=== PATIENT | male | born 1955 | race Caucasian/White ===

== ENCOUNTER → 2017-09-29 | Outpatient (CLI) | payer MEDICARE, OTHER ==
[~2017-09-29] MED LIST: ASPIRIN EC81 M1; CASODEX 50 MG T50 MG; GLUCOPHAGE850 MG; HYDROCODON-ACE1 EAC7; LASIX 20 MG TAB20 MG; LISINOPRIL-HCT1 EAC1 PO; LISINOPRIL10 MG PO; MEGACE; MEGESTROL ACETA20 MG PO; MOBIC7.5 M1 PO; PREDNISONE 10 M10 M1 PO; TOPROL XL25 MG PO; VITAMIN C + RO500 MG PO; VITAMIN D2400 UNIT PO; XTANDI40 MG PO; ZOLADEX SUBQ; ZOLADEX10.8 MG SQ
--- NOTE | 2017-09-29 14:40 | 2DMMODE ---
[place] [address] 2 D/M-MODE ECHOCARDIOGRAM Name: BEATRICE SCHREIBER Room: [facility]#: [id number] Admission: 09/29/17 Attend Phys: Mo Evans, Discharge: Date of : 53 Date of Service: 09/29/17 1439 Report #: [id number] THIS REPORT FOR: //name// APPROVED REPORT Study performed: 09/29/2017 13:26:32 EXAM: Comprehensive 2D, Doppler, and color-flow Echocardiogram Patient Location: Out-Patient Status: routine BSA: 2.41 HR: 88 bpm BP: 120/80 mmHg Other Information Study Quality: Good Indications Palpitations 2D Dimensions LVEF(%): 61.75 (>50%) IVSd: 11.94 (7-11mm) LVOT Diam: 20.67 (18-24mm) LVDd: 45.28 mm PWd: 11.48 (7-11mm) Ascending Ao: 28.40 (22-36mm) LVDs: 30.31 (25-40mm) Aortic Root: 34.47 mm Stone's LVEF: 61.75 % Volumes Left Atrial Volume (Systole) LA ESV Index: 15.20 mL/m2 Aortic Valve AoV Peak Jason.: 1.69 m/s AO Peak Gr.: 11.38 mmHg LVOT Max P.50 mmHg AO Mean Gr.: 6.87 mmHg LVOT Mean P.50 mmHg LVOT Max V: 0.94 m/s AO V2 VTI: 31.88 cm LVOT Mean V: 0.55 m/s CHELSEY (VTI): 1.84 cm2 LVOT V1 VTI: 17.48 cm Mitral Valve E/A Ratio: 0.68 MV Decel. Time: 279.71 [place] [address] 2 D/M-MODE ECHOCARDIOGRAM Name: BEATRICE SCHREIBER Room: [facility]#: [id number] Admission: 09/29/17 Attend Phys: Mo Evans, Discharge: Date of : 53 Date of Service: 09/29/17 1439 Report #: [id number] MV E Max Jason.: 0.63 m/s MV PHT: 81.12 ms MVA (PHT): 2.71 cm2 TDI E/Lateral E': 7.88 E/Medial E': 10.50 Medial E' Jason.: 0.06 m/s Lateral E' Jason.: 0.08 m/s Pulmonary Valve PV Peak Jason.: 1.19 m/s PV Peak Gr.: 5.66 mmHg Left Ventricle The left ventricle is normal size. There is normal LV segmental wall motion. Mild concentric left ventricular hypertrophy. Left ventricular systolic function is normal. The left ventricular ejection fraction is within the normal range. LVEF is 50-55%. Grade I - abnormal relaxation pattern. Right Ventricle The right ventricle is normal size. The right ventricular systolic function is normal. Atria The left atrium size is normal. The right atrium size is normal. Aortic Valve The aortic valve is normal in structure. No aortic regurgitation is present. There is no aortic valvular stenosis. Mitral Valve The mitral valve is normal in structure. Mild mitral regurgitation. No evidence of mitral valve stenosis. Tricuspid Valve The tricuspid valve is normal in structure. There is no tricuspid valve regurgitation noted. Pulmonic Valve Pulmonic valve is not well visualized. There is no pulmonic valvular regurgitation. Great Vessels The aortic root is normal in size. IVC [place] [address] 2 D/M-MODE ECHOCARDIOGRAM Name: BEATRICE SCHREIBER Waldemar Room: [facility]#: [id number] Admission: 09/29/17 Attend Phys: Mo Evans, Discharge: Date of : 53 Date of Service: 09/29/17 1439 Report #: [id number] Pericardium There is no pericardial effusion. <Conclusion> LVEF is 50-55%. Mild concentric left ventricular hypertrophy. Mild mitral regurgitation. <ELECTRONICALLY SIGNED> By: Jh Arrieta MD, [facility] 09/29/17 1439 1439 1439 Jh Arrieta MD, [facility] /INF
== END ==
LOC: M.CRD 13:00
DX: I34.0 Nonrheumatic mitral (valve) insufficiency (principal); I51.7 Cardiomegaly; I47.1 Supraventricular tachycardia

== ENCOUNTER → 2018-07-14 | Outpatient (CLI) | payer MEDICARE, OTHER ==
[2018-07-14 09:06] LABS: CALCIUM 8.9 mg/dL (8.5-10.1); CREATININE 0.9 mg/dL (0.6-1.3); POTASSIUM 4.3 mmol/L (3.5-5.1)
--- NOTE | 2018-07-17 12:46 | PF ---
[address] [address] PULMONARY FUNCTION REPORT Name: BEATRICE SCHREIBER Room: [facility]#: [id number] Admission: 07/14/18 Attend Phys: Mo Evans MD Discharge: Date of : 53 Report #: [id number] THIS REPORT FOR: //name// CC: CALI Evans DATE OF SERVICE: 07/14/2018 REQUESTING PHYSICIAN: Dr. Evans. Spirometry was done. FEV1 low normal at 2.85 at 79% of predicted. FVC 3.91. FEV1/FVC ratio 73%. Vital capacity did improve by 14% after inhaled bronchodilator. Mid flows were 72% of predicted. Lung volumes by plethysmography revealed a normal TLC. Residual volume was increased. Diffusion capacity was just mildly diminished. IMPRESSION: These studies are consistent with a mild obstructive process. Overall, no significant change seen after inhaled bronchodilator. Mild decrease in diffusion capacity and there is some air trapping. <ELECTRONICALLY SIGNED> By: Shannen Hernandez MD 07/17/18 1246 0921 [id number] Hernandez MD /nt
== END ==
LOC: M.LAB 07-03 15:43
PROVIDERS: Internal Medicine Cardiovascular Disease
DX: I42.0 Dilated cardiomyopathy (principal); R06.00 Dyspnea, unspecified

== ENCOUNTER → 2018-07-24 | Outpatient (CLI) | payer MEDICARE, OTHER | LOC: M.ULTRA 09:04 | DX: K76.0 Fatty (change of) liver, not elsewhere classified (principal); R16.0 Hepatomegaly, not elsewhere classified ==

== ENCOUNTER → 2018-10-27 | Outpatient (CLI) | payer MEDICARE, OTHER ==
[2018-10-27 14:39] LABS: ALBUMIN 3.6 g/dL (3.4-5.0); CALCIUM 9.5 mg/dL (8.5-10.1); CREATININE 1.1 mg/dL (0.6-1.3); POTASSIUM 4.5 mmol/L (3.5-5.1); TOTAL BILIRUBIN 0.4 mg/dL (<0.1-1.0); TOTAL PROTEIN 7.7 g/dL (6.4-8.2)
== END ==
LOC: M.LAB 13:41
PROVIDERS: Internal Medicine Hematology & Oncology
DX: C61 Malignant neoplasm of prostate (principal)

== ENCOUNTER → 2020-05-22 | Outpatient (CLI) | payer MEDICARE, OTHER ==
--- NOTE | 2020-05-22 11:42 | 2DMMODE ---
[place] [address] 2 D/M-MODE ECHOCARDIOGRAM Name: ABDOULBEATRICE SAHA Waldemar Room: [facility]#: [id number] Admission: 05/22/20 Attend Phys: Zach Elizondo Discharge: Date of : 53 Date of Service: 05/22/20 1142 Report #: [id number] THIS REPORT FOR: cc: Tabby Blas MD, Lin W. MD Holkins, John M. MD [facility] ~ APPROVED REPORT Study performed: 05/22/2020 10:16:29 EXAM: Comprehensive 2D, Doppler, and color-flow Echocardiogram Patient Location: Out-Patient BSA: 2.45 HR: 80 bpm BP: 135/78 mmHg Other Information Study Quality: Good Indications Cardiomyopathy Hypertension/HDD 2D Dimensions IVSd: 13.60 (7-11mm) LVOT Diam: 22.19 (18-24mm) LVDd: 43.34 mm PWd: 12.89 (7-11mm) Ascending Ao: 32.64 (22-36mm) LVDs: 26.67 (25-40mm) Aortic Root: 34.15 mm Volumes Left Atrial Volume (Systole) LA ESV Index: 15.50 mL/m2 Aortic Valve AoV Peak Jason.: 1.67 m/s AO Peak Gr.: 11.13 mmHg LVOT Max P.07 mmHg AO Mean Gr.: 6.43 mmHg LVOT Mean P.41 mmHg LVOT Max V: 0.88 m/s AO V2 VTI: 31.58 cm LVOT Mean V: 0.54 m/s CHELSEY (VTI): 2.24 cm2 LVOT V1 VTI: 18.26 cm [place] [address] 2 D/M-MODE ECHOCARDIOGRAM Name: BEATRICE SCHREIBER Room: [facility]#: [id number] Admission: 05/22/20 Attend Phys: Zach Elizondo Discharge: Date of : 53 Date of Service: 05/22/20 1142 Report #: [id number] E/A Ratio: 0.80 MV Decel. Time: 167.83 ms MV E Max Jason.: 0.67 m/s MV PHT: 48.67 ms MVA (PHT): 4.52 cm2 TDI E/Lateral E': 11.17 E/Medial E': 8.38 Medial E' Jason.: 0.08 m/s Lateral E' Jason.: 0.06 m/s Pulmonary Valve PV Peak Jason.: 1.13 m/s PV Peak Gr.: 5.14 mmHg Left Ventricle The left ventricle is normal size. There is normal LV segmental wall motion. There is normal left ventricular wall thickness. Left ventricular systolic function is normal. The left ventricular ejection fraction is within the normal range. LVEF is 60%. Grade I - abnormal relaxation pattern. Right Ventricle The right ventricle is normal size. The right ventricular systolic function is normal. Atria The left atrium size is normal. The right atrium size is normal. Aortic Valve Aortic valve is mildly calcified. No aortic regurgitation is present. There is no aortic valvular stenosis. Mitral Valve The mitral valve is normal in structure. Trace mitral regurgitation. No evidence of mitral valve stenosis. Tricuspid Valve The tricuspid valve is normal in structure. There is no tricuspid valve regurgitation noted. Pulmonic Valve The pulmonary valve is normal in structure. There is no pulmonic valvular regurgitation. [place] [address] 2 D/M-MODE ECHOCARDIOGRAM Name: ABDOULBEATRICE P Room: [facility]#: [id number] Admission: 05/22/20 Attend Phys: Zach Elizondo Discharge: Date of : 53 Date of Service: 05/22/20 1142 Report #: [id number] The aortic root is normal in size. IVC is normal in size and collapses >50% with inspiration. Pericardium There is no pericardial effusion. <Conclusion> The left ventricle is normal size. There is normal left ventricular wall thickness. Left ventricular systolic function is normal. The left ventricular ejection fraction is within the normal range. LVEF is 60%. Grade I - abnormal relaxation pattern. The right ventricle is normal size. The left atrium size is normal. Aortic valve is mildly calcified. No aortic regurgitation is present. There is no aortic valvular stenosis. The mitral valve is normal in structure. Trace mitral regurgitation. The tricuspid valve is normal in structure. IVC is normal in size and collapses >50% with inspiration. There is no pericardial effusion. There is normal LV segmental wall motion. <ELECTRONICALLY SIGNED> By: Allen Gaines MD, FACC 05/22/20 1142 1142 1142 Allen Gaines MD, FACC /INF
== END ==
LOC: M.CRD 05-15 14:00
PROVIDERS: ATTEND Internal Medicine
DX: I35.0 Nonrheumatic aortic (valve) stenosis (principal); I10 Essential (primary) hypertension; I42.0 Dilated cardiomyopathy; I70.0 Atherosclerosis of aorta

== ENCOUNTER → 2020-05-23 | Outpatient (CLI) | payer MEDICARE, OTHER ==
[2020-05-23 10:00] LABS: CALCIUM 8.7 mg/dL (8.5-10.1); CREATININE 1.1 mg/dL (0.6-1.3); POTASSIUM 3.8 mmol/L (3.5-5.1)
== END ==
LOC: M.LAB 09:12
PROVIDERS: ATTEND Nurse Practitioner
DX: R60.1 Generalized edema (principal)

== ENCOUNTER 2020-08-29 18:20 | Inpatient (IN) | payer MEDICARE, OTHER ==
[~2020-08-29] VITALS: Ht 180.3 cm; Wt 127.0 kg
[2020-08-29 18:20] VITALS: BP 159/78
[~2020-08-29 18:20] MED LIST changes: +GLUCOPHAGE500 MG PO; -GLUCOPHAGE850 MG
[2020-08-29] MEDS ORDERED: CLARITIN10 M3 PO (18:34)
[2020-08-29] MEDS ORDERED: CARVEDILOL6.25 M1 PO (18:34)
[2020-08-29] MEDS ORDERED: CARVEDILOL12.5 MG PO (18:34)
[2020-08-29] MEDS ORDERED: LYRICA150 MG PO (18:34)
[2020-08-29] MEDS ORDERED: ZOLADEX10.8 MG SUBQ (18:34)
[2020-08-29] MEDS ORDERED: ROXICODONE5 M2 PO (18:35)
[2020-08-29] MEDS ORDERED: VITAMIN D310 MC2 PO (18:35)
[2020-08-29] MEDS ORDERED: PROAIR HFA8.5 GM INH (18:35)
[2020-08-29] MEDS ORDERED: TRIAMCINOLONE A80 GM TOP (18:36)
[2020-08-29] MEDS ORDERED: MORPHINE SULFAT15 M4 PO (18:39)
[2020-08-29] MEDS ORDERED: BUMEX2 MG PO (18:39)
[2020-08-29] MEDS ORDERED: PROTONIX40 M2 PO (18:39)
[2020-08-29 19:01] LABS: ABSOLUTE LYMPHOCYTES 1.1 thou/uL (0.8-5.3); ABSOLUTE MONOCYTES 0.3 thou/uL (0.0-1.2); BASOPHILS 0.6 %; EOSINOPHILS 1.4 %; HEMATOCRIT 36.4 % (42.0-52.0); HEMOGLOBIN 12.4 gm/dL (14.0-18.0); LYMPHOCYTES 30.7 %; MCH 29.1 pg (26.0-34.0); MCHC 34.2 g/dL (28.0-37.0); MONOCYTES 9.5 %; MPV 8.3 fl. (7.2-11.1); NUCLEATED RBCS 0 /100WBC; PLATELET COUNT* 183 thou/uL (150-400); POLYS 57.8 %; RBC 4.28 mil/uL (4.50-6.00); RDW-CV 13.1 % (10.5-14.5); WBC 3.4 thou/uL (4.0-11.0)
[2020-08-29 19:09] LABS: APTT 28.3 Seconds (25.0-31.3); PROTIME 10.7 Seconds (9.20-11.50)
[2020-08-29 19:16] LABS: ANION GAP 4 mmol/L (7-16); BUN 11 mg/dL (7-18); CALCIUM 8.5 mg/dL (8.5-10.1); CHLORIDE 98 mmol/L (98-107); CO2 33 mmol/L (21-32); GLUCOSE 201 mg/dL (70-99); POTASSIUM 3.7 mmol/L (3.5-5.1); SODIUM 135 mmol/L (136-145)
[2020-08-29 19:30] LABS: ALBUMIN 3.2 g/dL (3.4-5.0); ALKALINE PHOSPHATASE 82 U/L (46-116); CK-MB MASS < 0.5 ng/mL (<0.5-3.6); LIPASE 180 U/L (73-393); MAGNESIUM 1.9 mg/dL (1.8-2.4); NT-PRO BRAIN NAT PEPTIDE 282 pg/mL (<300); SGOT 31 U/L (15-37); SGPT 43 U/L (30-65); TOTAL BILIRUBIN 0.4 mg/dL (<0.1-1.0); TOTAL PROTEIN 7.6 g/dL (6.4-8.2)
[2020-08-29 19:32] LABS: BE 3.7 mmol/L (-2 to +3); PCO2 34.7 mmHg (35.0-45.0); PO2 66.1 mmHg (75.0-100.0); pH 7.502 (7.340-7.450)
[2020-08-29 21:03] VITALS: BP 170/76
[2020-08-30] VITALS: BP 145/82
[2020-08-30 04:00] VITALS: BP 114/52
[2020-08-30 08:21] LABS: ABSOLUTE LYMPHOCYTES 0.7 thou/uL (0.8-5.3); ABSOLUTE MONOCYTES 0.1 thou/uL (0.0-1.2); ABSOLUTE NEUTROPHILS 1.7 thou/uL (1.6-8.1); BASOPHILS 0.2 %; HEMATOCRIT 36.4 % (42.0-52.0); LYMPHOCYTES 28.1 %; MCH 27.9 pg (26.0-34.0); MCHC 32.9 g/dL (28.0-37.0); MCV 84.8 fL (80.0-100.0); MONOCYTES 4.5 %; NUCLEATED RBCS 0 /100WBC; PLATELET COUNT* 185 thou/uL (150-400); POLYS 67.2 %; RBC 4.29 mil/uL (4.50-6.00); RDW-CV 13.1 % (10.5-14.5); WBC 2.5 thou/uL (4.0-11.0)
[2020-08-30 08:27] LABS: ALBUMIN 2.9 g/dL (3.4-5.0); CALCIUM 7.9 mg/dL (8.5-10.1); CREATININE 0.7 mg/dL (0.6-1.3); POTASSIUM 3.6 mmol/L (3.5-5.1); TOTAL BILIRUBIN 0.4 mg/dL (<0.1-1.0); TOTAL PROTEIN 7.3 g/dL (6.4-8.2)
[2020-08-30 08:53] VITALS: BP 159/80
--- NOTE | 2020-08-30 10:00 | EKG ---
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 : 1955 Requested By: Arvin Rodríguez Order Number: [id number] MD: Jh Arrieta Measurements Intervals [place] Rate: 89 P: 42 IN: 148 QRS: -60 QRSD: 95 T: 57 QT: 367 QTc: 447 Interpretive Statements Sinus rhythm Left anterior fascicular block Abnormal R-wave progression, late transition No previous ECG available for comparison Electronically Signed On 08-30-2020 10:00:39 CONVEYOR WEIGHER OPERATOR by Jh Arrieta [email or web address] <ELECTRONICALLY SIGNED> By: Jh Arrieta MD, FACC 08/30/20 1000 1825 1825 Jh Arrieta MD, [facility] /EPI
[2020-08-30 16:30] VITALS: BP 147/67
[2020-08-30 20:00] VITALS: BP 181/75
[2020-08-31] VITALS: BP 141/62
[2020-08-31 02:07] LABS: GLYCOHEMOGLOBIN (HGB A1C) 6.3 % (4.8-5.6)
[2020-08-31 04:00] VITALS: BP 143/76
[2020-08-31 05:14] LABS: ABSOLUTE LYMPHOCYTES 1.5 thou/uL (0.8-5.3); ABSOLUTE MONOCYTES 0.4 thou/uL (0.0-1.2); BASOPHILS 0.1 %; HEMATOCRIT 35.8 % (42.0-52.0); HEMOGLOBIN 11.9 gm/dL (14.0-18.0); LYMPHOCYTES 21.7 %; MCH 28.4 pg (26.0-34.0); MCHC 33.3 g/dL (28.0-37.0); MCV 85.1 fL (80.0-100.0); MONOCYTES 5.9 %; MPV 8.3 fl. (7.2-11.1); NUCLEATED RBCS 0 /100WBC; PLATELET COUNT* 229 thou/uL (150-400); POLYS 72.3 %; RBC 4.21 mil/uL (4.50-6.00); RDW-CV 13.3 % (10.5-14.5); WBC 6.9 thou/uL (4.0-11.0)
[2020-08-31 05:26] LABS: CALCIUM 8.2 mg/dL (8.5-10.1); CREATININE 0.8 mg/dL (0.6-1.3); MAGNESIUM 1.8 mg/dL (1.8-2.4); POTASSIUM 3.6 mmol/L (3.5-5.1); TOTAL BILIRUBIN 0.4 mg/dL (<0.1-1.0); TOTAL PROTEIN 7.5 g/dL (6.4-8.2)
[2020-08-31 09:49] VITALS: BP 142/63
[2020-08-31 12:00] VITALS: BP 115/67
--- NOTE | 2020-08-31 12:37 | CON ---
[address] [address] CONSULTATION Name: BEATRICE SCHREIBER Room: [address] IN .R.#: [id number] Admission: 08/29/20 Attend Phys: Hakan Pan MD Discharge: Date of : 53 Report #: [id number] THIS REPORT FOR: cc: Tabby Blas MD, Lin W. MD ~ Jarrell Corea MD DATE OF SERVICE: 08/30/2020 CONSULT REQUESTED BY: Dr. Flaco Nolen. INDICATION FOR CONSULTATION: COVID-19. The patient also is on chemotherapy for prostate cancer. HISTORY OF PRESENT ILLNESS: This is a 65-year-old gentleman with past medical history includes a history of COPD. The patient also has prostate cancer and takes chemotherapy. The patient now went to a football alliance party, there were several persons reported to be positive subsequent to this alliance party, which were present there. The patient then started having more respiratory complaints, had increasing shortness of breath, had cough. He also reported fever and therefore eventually came to the Emergency Room here. The patient initially required 2 liters of oxygen via nasal cannula to maintain O2 saturation, currently is off supplemental oxygen. There is improvement in shortness of breath as well as cough since yesterday. The patient has received Solu-Medrol overnight. He, however, has not received remdesivir or plasma. REVIEW OF SYSTEMS: The patient's review of systems for 10 points is negative except as mentioned above. PAST MEDICAL HISTORY: COPD. Last PFTs in our records show mild obstruction with evidence of reversibility, prostate cancer, he is on chemotherapy, stage 4, a TIA, hypertension, basal cell skin cancer, prediabetes and collarbone subluxation. SOCIAL HISTORY: Extensive history of smoking in the past, has discontinued now. No known history of heavy alcohol use or illegal drug use. ALLERGIES: CYMBALTA. FAMILY HISTORY: No pertinent family history. However, there were several person at the football alliance party he attended recently, positive later for COVID-19. CURRENT MEDICATIONS: List in [employer] reviewed. HOME MEDICATIONS: List in [employer] reviewed as well. [place] [address] CONSULTATION Name: BEATRICE SCHREIBER Waldemar Room: [address]#: [id number] Admission: 08/29/20 Attend Phys: Hakan Pan MD Discharge: Date of : 53 Report #: [id number] Zoladex long-term. PHYSICAL EXAMINATION: GENERAL: He is alert, awake and oriented, does not appear to be in any distress. VITAL SIGNS: Has a pulse of 70 and a blood pressure of 159/80. He is saturating 95%. He is not on supplemental oxygen. His respiratory rate is 16-17. He is afebrile with a temperature of 36.3. HEENT: Head is normocephalic and atraumatic. NECK: Does not show raised JVP. CHEST: Breath sounds, mildly decreased, equal. No added sounds. HEART: Regular. There is no murmur. ABDOMEN: Soft and nontender. EXTREMITIES: Lower extremities show no edema, no calf tenderness. SKIN: Dry and intact. LABORATORY DATA: The patient's lab work as well as chest x-ray are in [facility] and these are reviewed. The patient is noted to have some leukopenia. The patient also is noted to be positive for COVID-19. He has a respiratory alkalosis on his blood gas. ASSESSMENT AND PLAN: 1. COVID-19, we will continue with steroids; however I cut back the dose. We will see how he responds to this. If he continues to improve, then we will continue current therapy. Should he worsen and require oxygen again, then I will have a very low threshold of starting remdesivir as well as considering convalescent plasma. 2. Chronic obstructive pulmonary disease, steroid as above. He is on albuterol, which I changed to p.r.n. We will add Brovana. 3. Pulmonary infiltrates. These primarily appear to be secondary to COVID-19. There are also some chronic changes; however, I feel that it is reasonable for now to continue broad-spectrum antibiotics. 4. Stage IV prostate cancer, on chemotherapy. This will be an indication to have a low threshold of considering remdesivir and plasma should he decline. 5. Deep vein thrombosis prophylaxis. Agree with Lovenox as currently ordered. Thanks for this consultation. <ELECTRONICALLY SIGNED> By: Jarrell Corea MD 08/31/20 1237 1356 1421Avick Corea MD /nt
[2020-08-31 15:09] VITALS: BP 150/76; BP 160/80
[2020-08-31 19:43] VITALS: BP 131/58
[2020-09-01] VITALS (7 sets, daily range): BP systolic 106–139; BP diastolic 45–74
[2020-09-01 05:16] LABS: ABSOLUTE LYMPHOCYTES 1.2 thou/uL (0.8-5.3); ABSOLUTE MONOCYTES 0.4 thou/uL (0.0-1.2); ABSOLUTE NEUTROPHILS 3.4 thou/uL (1.6-8.1); BASOPHILS 0.2 %; HEMATOCRIT 32.3 % (42.0-52.0); HEMOGLOBIN 10.9 gm/dL (14.0-18.0); LYMPHOCYTES 24.4 %; MCH 28.7 pg (26.0-34.0); MCHC 33.7 g/dL (28.0-37.0); MCV 85.3 fL (80.0-100.0); MONOCYTES 8.1 %; MPV 8.5 fl. (7.2-11.1); NUCLEATED RBCS 0 /100WBC; PLATELET COUNT* 204 thou/uL (150-400); POLYS 67.3 %; RBC 3.79 mil/uL (4.50-6.00); RDW-CV 13.2 % (10.5-14.5)
[2020-09-01 05:35] LABS: ALBUMIN 2.7 g/dL (3.4-5.0); CALCIUM 8.4 mg/dL (8.5-10.1); CREATININE 0.8 mg/dL (0.6-1.3); POTASSIUM 3.3 mmol/L (3.5-5.1); TOTAL BILIRUBIN 0.5 mg/dL (<0.1-1.0); TOTAL PROTEIN 6.6 g/dL (6.4-8.2)
[2020-09-02 04:00] VITALS: BP 164/74
[2020-09-02 08:55] VITALS: BP 141/63
[2020-09-02 10:24] LABS: CREATININE 0.8 mg/dL (0.6-1.3)
[2020-09-02 12:00] VITALS: BP 119/56
[2020-09-02 16:00] VITALS: BP 126/61
[2020-09-02 20:39] VITALS: BP 133/64
[2020-09-03] VITALS (7 sets, daily range): BP systolic 100–146; BP diastolic 51–62
[2020-09-03 07:47] LABS: CREATININE 0.8 mg/dL (0.6-1.3)
[2020-09-04 00:20] VITALS: BP 104/51
[2020-09-04 04:44] VITALS: BP 121/76
[2020-09-04 07:30] VITALS: BP 143/63
[2020-09-04 09:59] LABS: CALCIUM 8.2 mg/dL (8.5-10.1); CREATININE 0.8 mg/dL (0.6-1.3); POTASSIUM 3.8 mmol/L (3.5-5.1)
[2020-09-04 14:03] VITALS: BP 124/65
--- NOTE | 2020-09-04 15:04 | EKG ---
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 : 1955 Requested By: Hakan Pan Order Number: [id number] Don MD: Allen Gaines Measurements Intervals [place] Rate: 83 P: 38 GA: 153 QRS: -36 QRSD: 99 T: 25 QT: 375 QTc: 441 Interpretive Statements Sinus rhythm Left axis deviation; left anterior hemiblock Abnormal R-wave progression, late transition Compared to ECG 08/29/2020 18:25:10 Left-axis deviation persists Electronically Signed On 09-04-2020 15:03:47 SUPERVISOR MIRROR FABRICATION by Allen Gaines [email or web address] <ELECTRONICALLY SIGNED> By: Allen Gaines MD, FACC 09/04/20 1503 36 36 Allen Gaines MD, FAC /EPI
[2020-09-04 17:16] VITALS: BP 128/58
[2020-09-04 21:00] VITALS: BP 157/73
[2020-09-05 00:18] VITALS: BP 132/61
[2020-09-05 04:00] VITALS: BP 141/70
[2020-09-05 07:06] LABS: ABSOLUTE BASOPHILS 0.1 thou/uL (0.0-0.2); ABSOLUTE EOSINOPHILS 0.1 thou/uL (0.0-0.7); ABSOLUTE LYMPHOCYTES 1.1 thou/uL (0.8-5.3); ABSOLUTE MONOCYTES 0.5 thou/uL (0.0-1.2); ABSOLUTE NEUTROPHILS 4.8 thou/uL (1.6-8.1); EOSINOPHILS 0.9 %; HEMATOCRIT 33.6 % (42.0-52.0); HEMOGLOBIN 11.1 gm/dL (14.0-18.0); LYMPHOCYTES 16.4 %; MCH 27.8 pg (26.0-34.0); MCV 84.1 fL (80.0-100.0); MONOCYTES 8.1 %; NUCLEATED RBCS 0 /100WBC; PLATELET COUNT* 346 thou/uL (150-400); POLYS 73.6 %; RDW-CV 13.3 % (10.5-14.5); WBC 6.5 thou/uL (4.0-11.0)
[2020-09-05 07:37] LABS: ALBUMIN 2.4 g/dL (3.4-5.0); CALCIUM 8.6 mg/dL (8.5-10.1); CREATININE 0.9 mg/dL (0.6-1.3); MAGNESIUM 2.1 mg/dL (1.8-2.4); POTASSIUM 3.6 mmol/L (3.5-5.1); TOTAL BILIRUBIN 0.5 mg/dL (<0.1-1.0)
[2020-09-05 08:06] VITALS: BP 149/81
[2020-09-05 12:30] VITALS: BP 129/71
[2020-09-05 16:00] VITALS: BP 146/64
[2020-09-05 21:02] VITALS: BP 139/41
[2020-09-06 00:56] VITALS: BP 129/65
[2020-09-06 04:00] VITALS: BP 135/65
[2020-09-06 05:02] VITALS: BP 146/77
[2020-09-06 08:01] LABS: HEMATOCRIT 33.4 % (42.0-52.0); HEMOGLOBIN 11.2 gm/dL (14.0-18.0); MCH 28.2 pg (26.0-34.0); MCHC 33.5 g/dL (28.0-37.0); MCV 84.2 fL (80.0-100.0); MPV 7.9 fl. (7.2-11.1); NUCLEATED RBCS 0 /100WBC; RBC 3.97 mil/uL (4.50-6.00); RDW-CV 13.3 % (10.5-14.5); WBC 7.6 thou/uL (4.0-11.0)
[2020-09-06 08:03] LABS: PLATELET COUNT* 448 thou/uL (150-400)
[2020-09-06 08:10] LABS: ALBUMIN 2.3 g/dL (3.4-5.0); CALCIUM 8.4 mg/dL (8.5-10.1); CREATININE 0.7 mg/dL (0.6-1.3); POTASSIUM 3.7 mmol/L (3.5-5.1); TOTAL BILIRUBIN 0.3 mg/dL (<0.1-1.0); TOTAL PROTEIN 7.3 g/dL (6.4-8.2)
[2020-09-06 08:29] LABS: PREALBUMIN 13.9 mg/dL (18.0-35.7)
[2020-09-06 08:59] LABS: ABSOLUTE EOSINOPHILS 0.2 thou/uL (0.0-0.7); ABSOLUTE LYMPHOCYTES 2.1 thou/uL (0.8-5.3); ABSOLUTE MONOCYTES 0.2 thou/uL (0.0-1.2); ABSOLUTE NEUTROPHILS 5.1 thou/uL (1.6-8.1); ATYPICAL LYMPHS 2 %; METAMYELOCYTES 1 %; PLATELET ESTIMATE ADEQUATE; PROMYELOCYTES 1 %
[2020-09-06] MEDS ORDERED: DEXAMETHASONE1 MG PO (11:36)
[2020-09-06] MEDS ORDERED: DOXYCYCLINE 10100 MG PO (11:36)
[2020-09-06 12:00] VITALS: BP 148/68
[2020-09-06 16:30] VITALS: BP 123/60
[2020-09-06 20:00] VITALS: BP 155/74
[2020-09-07] VITALS: BP 106/59
[2020-09-07 06:37] LABS: ABSOLUTE EOSINOPHILS 0.2 thou/uL (0.0-0.7); ABSOLUTE LYMPHOCYTES 2.1 thou/uL (0.8-5.3); ABSOLUTE MONOCYTES 0.5 thou/uL (0.0-1.2); BASOPHILS 0.5 %; EOSINOPHILS 2.4 %; HEMATOCRIT 33.4 % (42.0-52.0); LYMPHOCYTES 23.2 %; MCH 28.2 pg (26.0-34.0); MCV 85.3 fL (80.0-100.0); MPV 7.9 fl. (7.2-11.1); NUCLEATED RBCS 0 /100WBC; PLATELET COUNT* 484 thou/uL (150-400); POLYS 67.9 %; RBC 3.91 mil/uL (4.50-6.00); RDW-CV 13.3 % (10.5-14.5); WBC 8.9 thou/uL (4.0-11.0)
[2020-09-07 06:59] LABS: ALBUMIN 2.4 g/dL (3.4-5.0); CREATININE 0.8 mg/dL (0.6-1.3); POTASSIUM 3.8 mmol/L (3.5-5.1); TOTAL BILIRUBIN 0.3 mg/dL (<0.1-1.0); TOTAL PROTEIN 7.4 g/dL (6.4-8.2)
[2020-09-07 09:24] VITALS: BP 146/65
[2020-09-07 13:05] VITALS: BP 115/51
[2020-09-07 19:11] VITALS: BP 157/61
[2020-09-07 20:00] VITALS: BP 138/71
[2020-09-07 23:50] VITALS: BP 146/84; BP 170/74
[2020-09-08 03:58] VITALS: BP 147/80
[2020-09-08 04:39] LABS: ABSOLUTE EOSINOPHILS 0.2 thou/uL (0.0-0.7); ABSOLUTE LYMPHOCYTES 1.6 thou/uL (0.8-5.3); ABSOLUTE MONOCYTES 0.4 thou/uL (0.0-1.2); ABSOLUTE NEUTROPHILS 5.2 thou/uL (1.6-8.1); BASOPHILS 0.5 %; EOSINOPHILS 2.1 %; HEMATOCRIT 30.9 % (42.0-52.0); HEMOGLOBIN 10.3 gm/dL (14.0-18.0); LYMPHOCYTES 21.4 %; MCH 28.4 pg (26.0-34.0); MCHC 33.3 g/dL (28.0-37.0); MCV 85.4 fL (80.0-100.0); MONOCYTES 5.9 %; MPV 7.8 fl. (7.2-11.1); NUCLEATED RBCS 0 /100WBC; PLATELET COUNT* 457 thou/uL (150-400); POLYS 70.1 %; RBC 3.62 mil/uL (4.50-6.00); RDW-CV 13.2 % (10.5-14.5); WBC 7.4 thou/uL (4.0-11.0)
[2020-09-08 05:03] LABS: ALBUMIN 2.2 g/dL (3.4-5.0); CALCIUM 8.8 mg/dL (8.5-10.1); CREATININE 0.7 mg/dL (0.6-1.3); TOTAL BILIRUBIN 0.3 mg/dL (<0.1-1.0); TOTAL PROTEIN 6.9 g/dL (6.4-8.2)
[2020-09-08 07:45] VITALS: BP 139/87
[2020-09-08 12:00] VITALS: BP 128/63
[2020-09-08 20:00] VITALS: BP 139/60
[2020-09-08 23:52] VITALS: BP 142/71
[2020-09-09 04:00] VITALS: BP 158/73
[2020-09-09 09:28] VITALS: BP 133/65
[2020-09-09 12:00] VITALS: BP 121/56
[2020-09-09 14:59] LABS: CALCIUM 8.6 mg/dL (8.5-10.1); CREATININE 0.7 mg/dL (0.6-1.3); MAGNESIUM 2.3 mg/dL (1.8-2.4); POTASSIUM 4.1 mmol/L (3.5-5.1)
[2020-09-09 16:00] VITALS: BP 101/57
[2020-09-09 20:23] VITALS: BP 137/55
[2020-09-10 00:02] VITALS: BP 125/61
[2020-09-10 04:49] VITALS: BP 138/69
[2020-09-10 07:10] LABS: MCH 28.3 pg (26.0-34.0); MCHC 33.3 g/dL (28.0-37.0); MPV 7.9 fl. (7.2-11.1); RBC 3.88 mil/uL (4.50-6.00); RDW-CV 13.2 % (10.5-14.5); WBC 8.2 thou/uL (4.0-11.0)
[2020-09-10 07:33] LABS: ALBUMIN 2.5 g/dL (3.4-5.0); CALCIUM 9.3 mg/dL (8.5-10.1); CREATININE 0.8 mg/dL (0.6-1.3); MAGNESIUM 2.1 mg/dL (1.8-2.4); POTASSIUM 4.2 mmol/L (3.5-5.1); TOTAL BILIRUBIN 0.3 mg/dL (<0.1-1.0)
[2020-09-10 10:15] VITALS: BP 133/61
[2020-09-10 12:26] VITALS: BP 129/70
[2020-09-10 15:31] VITALS: BP 129/70
== END 2020-09-10 18:20 | disposition home health service (06) | DRG 871 ==
LOC: M.ERS 18:20 → M.TBA-ER 19:43 → M.ORTHSURG 19:43
PROVIDERS: Family Medicine; Internal Medicine; Internal Medicine Critical Care Medicine; Personal Emergency Response Attendant; ADMIT Internal Medicine; ATTEND Internal Medicine
PROC: XW13325 Transfusion of Convalescent Plasma (Nonautologous) into Peripheral Vein, Percutaneous Approach, New Technology Group 5 (ICD-10-PCS; principal; 2020-08-31)
PROC: XW033E5 Introduction of Remdesivir Anti-infective into Peripheral Vein, Percutaneous Approach, New Technology Group 5 (ICD-10-PCS; 2020-09-01)
PROC: 5A0935A Assistance with Respiratory Ventilation, Less than 24 Consecutive Hours, High Flow/Velocity Cannula (ICD-10-PCS; 2020-09-05)
PROC: 5A0935A Assistance with Respiratory Ventilation, Less than 24 Consecutive Hours, High Flow/Velocity Cannula (ICD-10-PCS; 2020-09-09)
DX: A41.89 Other specified sepsis (principal); U07.1 COVID-19; J12.89 Other viral pneumonia; J96.01 Acute respiratory failure with hypoxia; C61 Malignant neoplasm of prostate; I10 Essential (primary) hypertension; R73.03 Prediabetes; J44.9 Chronic obstructive pulmonary disease, unspecified; E66.01 Morbid (severe) obesity due to excess calories; Z86.73 Personal history of transient ischemic attack (TIA), and cerebral infarction without residual deficits; Z68.39 Body mass index [BMI] 39.0-39.9, adult; Z92.21 Personal history of antineoplastic chemotherapy; Z85.828 Personal history of other malignant neoplasm of skin; Z79.84 Long term (current) use of oral hypoglycemic drugs; Z79.82 Long term (current) use of aspirin; Z79.899 Other long term (current) drug therapy; Z88.8 Allergy status to other drugs, medicaments and biological substances; Z87.891 Personal history of nicotine dependence; Z28.21 Immunization not carried out because of patient refusal

== ENCOUNTER → 2021-06-27 | Outpatient (CLI) | payer MEDICARE, OTHER ==
[~2021-06-27] MED LIST changes: +BUMEX2 MG PO; +CARVEDILOL12.5 MG PO; +CARVEDILOL6.25 M1 PO; +CLARITIN10 M3 PO; +DEXAMETHASONE1 MG PO; +DOXYCYCLINE 10100 MG PO; +LYRICA150 MG PO; +MORPHINE SULFAT15 M4 PO; +PROAIR HFA8.5 GM INH; +PROTONIX40 M2 PO; +ROXICODONE5 M2 PO; +TRIAMCINOLONE A80 GM TOP; +VITAMIN D310 MC2 PO; +ZOLADEX10.8 MG SUBQ
--- NOTE | 2021-06-27 14:11 | 2DMMODE ---
[place] [address] 2 D/M-MODE ECHOCARDIOGRAM Name: BEATRICE SCHREIBER Room: [facility]#: [id number] Admission: 06/27/21 Attend Phys: Zach Elizondo Discharge: Date of : 53 Date of Service: 06/27/21 1411 Report #: [id number] THIS REPORT FOR: cc: Tabby Blas MD, Lin W. MD Holkins, John M. MD [facility] ~ APPROVED REPORT Study performed: 06/27/2021 11:01:42 EXAM: Comprehensive 2D, Doppler, and color-flow Echocardiogram Patient Location: Out-Patient BSA: 2.43 HR: 90 bpm BP: 140/80 mmHg Other Information Study Quality: Good Indications Hypertension/HDD 2D Dimensions IVSd: 12.62 (7-11mm) LVOT Diam: 21.30 (18-24mm) LVDd: 41.78 mm PWd: 12.62 (7-11mm) Ascending Ao: 29.72 (22-36mm) LVDs: 26.01 (25-40mm) Aortic Root: 29.27 mm Volumes Left Atrial Volume (Systole) LA ESV Index: 16.10 mL/m2 Aortic Valve AoV Peak Jason.: 2.67 m/s AO Peak Gr.: 28.53 mmHg LVOT Max P.83 mmHg AO Mean Gr.: 16.01 mmHg LVOT Mean P.59 mmHg LVOT Max V: 1.21 m/s AO V2 VTI: 47.81 cm LVOT Mean V: 0.73 m/s CHELSEY (VTI): 1.81 cm2 LVOT V1 VTI: 24.22 cm Mitral Valve E/A Ratio: 0.66 [place] [address] 2 D/M-MODE ECHOCARDIOGRAM Name: BEATRICE SCHREIBER Room: [facility]#: [id number] Admission: 06/27/21 Attend Phys: Zach Elizondo Discharge: Date of : 53 Date of Service: 06/27/21 1411 Report #: [id number] MV Decel. Time: 300.43 ms MV E Max Jason.: 0.69 m/s MV PHT: 87.13 ms MVA (PHT): 2.53 cm2 TDI E/Lateral E': 6.90 E/Medial E': 6.90 Medial E' Jason.: 0.10 m/s Lateral E' Jason.: 0.10 m/s Pulmonary Valve PV Peak Jason.: 1.25 m/s PV Peak Gr.: 6.25 mmHg Tricuspid Valve RAP Estimate: 5.00 mmHg TR Peak Gr.: 19.58 mmHg RVSP: 24.58 mmHg PA Pressure: 24.58 mmHg Left Ventricle The left ventricle is normal size. There is normal LV segmental wall motion. Borderline concentric left ventricular hypertrophy. Left ventricular systolic function is normal. The left ventricular ejection fraction is within the normal range. LVEF is 55-60%. Grade I - abnormal relaxation pattern. Right Ventricle The right ventricle is normal size. The right ventricular systolic function is normal. Atria The left atrium size is normal. The right atrium size is normal. Aortic Valve Moderate aortic valve sclerosis. No aortic regurgitation is present. Mild aortic stenosis. Mitral Valve The mitral valve is normal in structure. Mild mitral regurgitation. No evidence of mitral valve stenosis. Tricuspid Valve The tricuspid valve is normal in structure. Mild tricuspid regurgitation[place] [address] 2 D/M-MODE ECHOCARDIOGRAM Name: BEATRICE SCHREIBER SHAGUFTA Room: [facility]#: [id number] Admission: 06/27/21 Attend Phys: Zach Elizondo Discharge: Date of : 53 Date of Service: 06/27/21 1411 Report #: [id number] The pulmonary valve is normal in structure. There is no pulmonic valvular regurgitation. Great Vessels The aortic root is normal in size. IVC is normal in size and collapses >50% with inspiration. Pericardium There is no pericardial effusion. <Conclusion> The left ventricle is normal size. Borderline concentric left ventricular hypertrophy. Left ventricular systolic function is normal. The left ventricular ejection fraction is within the normal range. LVEF is 55-60%. Grade I - abnormal relaxation pattern. The right ventricle is normal size. The left atrium size is normal. Moderate aortic valve sclerosis. No aortic regurgitation is present. Mild aortic stenosis. The mitral valve is normal in structure. The tricuspid valve is normal in structure. Mild tricuspid regurgitation. IVC is normal in size and collapses >50% with inspiration. There is no pericardial effusion. There is normal LV segmental wall motion. <ELECTRONICALLY SIGNED> By: Allen Gaines MD, FACC 06/27/21 141 10 10 Allen Gaines MD, FACC /INF
== END ==
LOC: M.CRD 10:16
PROVIDERS: ATTEND Internal Medicine
DX: I08.3 Combined rheumatic disorders of mitral, aortic and tricuspid valves (principal); I10 Essential (primary) hypertension; I42.0 Dilated cardiomyopathy

== ENCOUNTER → 2021-06-28 | Outpatient (CLI) | payer MEDICARE, OTHER ==
[2021-06-28 11:08] LABS: CHOLESTEROL 264 mg/dL (<200); HDL CHOLESTEROL 43 mg/dL (>40); LDL CHOLESTEROL 146 mg/dL (<100); SERUM ASSESSMENT Clear; TC:HDL 6.1 Ratio (Not establshd); TRIGLYCERIDE 376 mg/dL (<150); VLDL 75 mg/dL (<40)
== END ==
LOC: M.LAB 10:04
PROVIDERS: ATTEND Nurse Practitioner
DX: Z13.220 Encounter for screening for lipoid disorders (principal); I10 Essential (primary) hypertension

== ENCOUNTER 2021-07-10 23:33 | Inpatient (IN) | payer MEDICARE, OTHER ==
[~2021-07-10] VITALS: Ht 180.3 cm; Wt 129.7 kg
--- NOTE | ~2021-07-10 | CON ---
[address] [address] CONSULTATION Name: BEATRICE SCHREIBER Room: [address] IN M.R.#: [id number] Admission: 07/12/21 Attend Phys: Jodi Castle Discharge: Date of : 53 Report #: [id number] THIS REPORT FOR: cc: Tabby Blas MD, Lin W. MD Khosla, Parveen K. MD ~ DATE OF CONSULTATION: 07/12/2021 HISTORY OF PRESENT ILLNESS: A 66-year-old male patient who was evaluated by me for headache. The patient says that he does not usually get headache. He has no history of migraine. He developed severe bilateral headache about 4-6 weeks ago. This is the most severe headache he had. He does not know any aggravating or relieving factors for this. He was found to be hypertensive in the Emergency Room, but the blood pressure was about 180 systolic, which is normal than the patient has, but was not extremely high. REVIEW OF SYSTEMS: He has a longstanding history of hypertension. He takes his medication and his blood pressure stays about 130/80. His blood pressure is better, but his headache is not. In fact, he says his headache is worse now. He also says he has developed some back pain. It is in the location of flanks. He did have a UA and the UA was negative. He denies any history of anxiety and depression. He does not believe he is stressed out. He did have a prostate cancer a few years ago and he even has metastasis to the nodes. He does not think that caused him any stress. He did get chemotherapy and he has a neuropathy secondary to that. He does not complain of any new eye, ENT, cardiac symptoms. He said he had a TIA about close to 20 years ago, but it was mainly the fact that he felt there was a hot water shower on the right side of the face. He has a basal cell carcinoma. He does not have any constitutional, dermatological, hematological, psychiatric, throat or allergic symptoms associated with present symptomatology. He was taking a baby aspirin as a preventive measure for stroke or heart attack according to him. PHYSICAL EXAMINATION: NEUROLOGIC: His examination indicated that the patient is alert, responsive. His speech, concentration, fund of knowledge and memory are at his baseline. Cranial nerve examination 2-12 looks unremarkable. He has symmetrical strength on both sides. His position sense is intact in both lower extremities. He said he has diminished sensation in both legs and that has been attributed to neuropathy caused by his chemotherapy, which was given because of prostate cancer. His reflexes are diminished. He does not have any cerebellar sign. I could not look at the patient's fundus. His pulses are difficult to feel. He has no edema. He has no thyroid mass. No carotid bruit. CARDIAC: Examination is unremarkable. RESPIRATORY: Examination indicates rhonchi on both sides, which are scattered. VITAL SIGNS: Blood pressure is 128/44, respirations 18, pulse is 77, [address] [place] [address] CONSULTATION Name: ABDOULBEATRICEJennifer EAGLE Room: [address] IN [facility]#: [id number] Admission: 07/12/21 Attend Phys: Jodi Castle Discharge: Date of : 53 Report #: [id number] temperature is 97.9. LABORATORY DATA: His lab indicates a white count of 4.6 and a sodium of 134. He is morbidly obese. He had a CTA of the head and neck on admission, which showed no significant stenosis. IMPRESSION: The patient is complaining of headache without any clinically positive neurological finding except I could not look at the patient's fundus. His last Ophthalmology examination was 2 years ago. He denies any stress. Prostate cancer does not typically go to the brain. He does not have much signs for meningeal carcinomatosis either. RECOMMENDATIONS: I discussed his options with him. He wants to be aggressive to rule out any neurological causes. Therefore, after discussing all the indication, potential complications and alternatives with the patient, my recommendation was as follows: 1. We will get an MRI with and without contrast. I discussed the potential complication and alternative with the patient. I also discussed irreversible dermatological side effects from it and he understands that he wants to proceed with MRI with and without contrast. 2. I asked him to think about it and if he wants to proceed, we can also proceed with spinal tap to exclude any pathology. I will hold his Lovenox for the time being in case he wants to do that. 3. I will check a sed rate, although it does not look typical for temporal arteritis. Thank you very much for allowing me to share in the management of this patient, and if you have any questions, please feel free to contact me. By: [id number] 181Harjit Mustafa MD /carli
[2021-07-10 23:40] VITALS: BP 182/88
[2021-07-10] MEDS ORDERED: VITAMIN B-121000 MC2 SUBLING (23:48)
[2021-07-11 00:21] LABS: ABSOLUTE EOSINOPHILS 0.1 thou/uL (0.0-0.7); ABSOLUTE LYMPHOCYTES 1.5 thou/uL (0.8-5.3); ABSOLUTE MONOCYTES 0.5 thou/uL (0.0-1.2); ABSOLUTE NEUTROPHILS 2.5 thou/uL (1.6-8.1); BASOPHILS 0.9 %; EOSINOPHILS 2.6 %; HEMATOCRIT 35.1 % (42.0-52.0); HEMOGLOBIN 11.9 gm/dL (14.0-18.0); MCH 28.7 pg (26.0-34.0); MCHC 33.9 g/dL (28.0-37.0); MCV 84.7 fL (80.0-100.0); MONOCYTES 9.9 %; MPV 7.7 fl. (7.2-11.1); NUCLEATED RBCS 0 /100WBC; PLATELET COUNT* 220 thou/uL (150-400); POLYS 54.6 %; RBC 4.14 mil/uL (4.50-6.00); RDW-CV 14.1 % (10.5-14.5); WBC 4.6 thou/uL (4.0-11.0)
[2021-07-11 00:22] LABS: CALCIUM 8.5 mg/dL (8.5-10.1); CREATININE 0.9 mg/dL (0.6-1.3); POTASSIUM 3.9 mmol/L (3.5-5.1)
[2021-07-11 00:25] LABS: PROTIME 10.3 Seconds (9.20-11.50)
[2021-07-11 00:58] LABS: URINE BILIRUBIN NEGATIVE (Negative); URINE BLOOD NEGATIVE (Negative); URINE CLARITY CLEAR; URINE COLOR YELLOW; URINE GLUCOSE-RANDOM NEGATIVE (Negative); URINE KETONES NEGATIVE (Negative); URINE LEUKOCYTES-REFLEX NEGATIVE (Negative); URINE NITRITE-REFLEX NEGATIVE (Negative); URINE PROTEIN NEGATIVE (Negative); URINE UROBILINOGEN 0.2 E.U./dl (0.2-1.0)
[2021-07-11 07:13] VITALS: BP 118/74
--- NOTE | 2021-07-11 10:05 | NUR ---
CALLED CARDIOLOGY AND STATE PT STATUS CAN BE CHANGED FROM NPO TO 1800 [address] ADA DIET; WILL BE ROUNDING ETA 1.5 -2 HOURS
[2021-07-11 11:11] VITALS: BP 139/70
--- NOTE | 2021-07-11 12:20 | NUR ---
CALLED DR MANZO, PT MAY CONTINUE HOME MED XTANDI 240MG PO DAILY NOW AND IN AM EACH DAY. PT PROVIDING MED FROM HOME.
[2021-07-11] MEDS ORDERED: COZAAR 50 MG TA50 M1 PO (13:01)
[2021-07-11 15:07] VITALS: BP 134/63
[2021-07-11 17:20] VITALS: BP 136/70
--- NOTE | 2021-07-11 18:13 | NUR ---
pt report zofran ineffective. dr white notified at this time for alternative medication
[2021-07-11 20:49] VITALS: BP 160/81
[2021-07-11] MEDS ORDERED: LYRICA100 MG PO (21:18)
[2021-07-12] VITALS: BP 141/64
[2021-07-12 04:49] VITALS: BP 103/46
--- NOTE | 2021-07-12 07:38 | NUR ---
PT IS ABLE TO COMMUNICATE HIS NEEDS TO STAFF EFFECTIVELY. CURRENT PAIN MEDICATION REGIMEN HAS BEEN ADEQUATE FOR CONTROLLING HIS PAIN UP TO THIS TIME. NEUROLOGY CONSULTED TODAY. POSSIBLE DISCHARGE SOON.
[2021-07-12 08:49] VITALS: BP 161/76
--- NOTE | 2021-07-12 10:38 | NUR ---
CM ASSESSMENT: PT A&O, INDEPENDENT WITH ADL'S, AND ACTIVE. PT RESIDES AT HOME WITH SPOUSE. PT USES 0 DME. PT HAS PAST HX OF HH WITH [facility]. PT HAS 0 HX OF SNF. NO CM D/C PLANNING NEEDS ANTICIPATED AT THIS TIME. CM WILL REMAIN AVAILABLE TO ASSIST AND FOLLOW NEEDED.
[2021-07-12 12:00] VITALS: BP 109/52
--- NOTE | 2021-07-12 14:17 | EKG ---
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
--- NOTE | 2021-07-12 15:33 | NUR ---
dr faust, neuro at [facility] and unable to come back to [facility] until 7:30/[address] white paged w this info at this time. Patient and pts updated.
[2021-07-12 15:38] VITALS: BP 128/44
[2021-07-12 20:24] VITALS: BP 137/78
[2021-07-13 00:43] VITALS: BP 140/62
[2021-07-13 05:16] VITALS: BP 131/65
--- NOTE | 2021-07-13 06:53 | NUR ---
PT IS ABLE TO COMMUNICATE HIS NEEDS TO STAFF EFFECTIVELY. CURRENT PAIN MEDICATION REGIMEN HAS BEEN ADEQUATE FOR CONTROLLING HIS PAIN UP TO THIS TIME. PT IS TENTATIVELY SCHEDULED FOR AN MRI TODAY. POSSIBLE DISCHARGE TODAY PENDING SCAN AND MD.
[2021-07-13 07:36] VITALS: BP 150/63
[2021-07-13 12:00] VITALS: BP 135/53
--- NOTE | 2021-07-13 12:52 | NUR ---
PHYSICIAN INFORMS OF PLAN FOR THE PT TO D/C HOME TODAY WITH SELF-CARE PENDING NEURO RECOMMENDAITONS. NO CM D/C PLANNING NEEDS. CM WILL REMAIN AVAILABLE TO ASSIST AND FOLLOW NEEDED.
[2021-07-13 14:37] VITALS: BP 135/53
== END 2021-07-13 15:10 | disposition home or self-care (01) | DRG 305 ==
LOC: M.ERS 23:33 → M.TBA-ER 07-11 03:13 → M.2W 07-11 17:23
PROVIDERS: Emergency Medicine; ADMIT Internal Medicine; ATTEND Internal Medicine
DX: I16.0 Hypertensive urgency (principal); Z20.822 Contact with and (suspected) exposure to COVID-19; I10 Essential (primary) hypertension; R73.03 Prediabetes; Z85.46 Personal history of malignant neoplasm of prostate; Z86.73 Personal history of transient ischemic attack (TIA), and cerebral infarction without residual deficits; Z88.8 Allergy status to other drugs, medicaments and biological substances; Z79.82 Long term (current) use of aspirin; Z79.899 Other long term (current) drug therapy